=== PATIENT | female | born 1970 | race African-American/Black ===

== ENCOUNTER 2018-02-05 03:35 | Emergency (ER) | payer MEDICAID ==
[~2018-02-05] VITALS: Ht 170.2 cm; Wt 97.5 kg
[2018-02-05 03:58] VITALS: BP 132/69
[2018-02-05 05:28] LABS: Urine Bacteria FEW /hpf (None Seen); Urine Blood TRACE /uL (Negative); Urine Hyaline Cast FEW /lpf (0 - 2); Urine Mucus FEW (None Seen); Urine Specific Gravity 1.027 (1.001-1.035); Urine WBC 24 /hpf (0 - 5)
== END 2018-02-05 06:45 | disposition left against medical advice (07) ==
LOC: ER 03:39
DX: R10.9 Unspecified abdominal pain (principal); R07.9 Chest pain, unspecified; Z53.21 Procedure and treatment not carried out due to patient leaving prior to being seen by health care provider
CPT/HCPCS: 71046; 81001; 93005